=== PATIENT | male | born 1995 | race Caucasian/White ===

== ENCOUNTER 2024-05-06 21:16 | Emergency (ER) | payer OTHER ==
[~2024-05-06] VITALS: Ht 175.3 cm; Wt 83.9 kg
[2024-05-06 23:10] VITALS: BP 125/89; TEMP 98; O2SAT 99
== END 2024-05-06 23:11 | disposition home or self-care (01) ==
LOC: ER 21:21
DX: S93.491A Sprain of other ligament of right ankle, initial encounter (principal); W17.89XA Other fall from one level to another, initial encounter; Y93.89 Activity, other specified; Y92.89 Other specified places as the place of occurrence of the external cause; Y99.8 Other external cause status